=== PATIENT | male | born 1960 | race Caucasian/White ===

== ENCOUNTER 2017-02-28 18:24 | Emergency (ER) | payer OTHER ==
[~2017-02-28] VITALS: Ht 177.8 cm; Wt 88.4 kg
[2017-02-28 18:35] VITALS: O2SAT 98; Ht 177.8 cm; Wt 88.4 kg
[2017-02-28 18:58] VITALS: BP 126/74; PULSE 81; TEMP 36.8; O2SAT 96
--- NOTE | 2017-02-28 19:10 | EMERGENCY ROOM VISIT NOTE ---
History Report prepared by Marquisibgerardo: Nilton Mehta Under the Supervision of: Dr. Erich Geronimo M.D. First contact with patient: 18:27 Stated Complaint: FALL; ETOH History of Present Illness The patient is a 56 year old male who presents to the Emergency Room for evaluation s/p fall occurring just prior to arrival. He states that he was walking up some stairs at the [employer] game, when he fell backwards down the stairs. He is reported to have possibly fallen about 5-8 feet--he was found at the bottom of the stairs. The patient admits to drinking alcohol today. He remembers the fall. He denies any pain, or vomiting. The patient had an ECG with EMS which is reported to have been slightly abnormal. He blew a 0.148 by breathalyzer on scene. Per , the patient had a large amount of alcohol today, and did not have much to eat. She feels that he is nearly sober currently. Source of History: patient Onset: Just prior to arrival Quality: other (fall) Timing: other (episode) Associated Symptoms: No headache, No neck pain, No chest pain, No vomiting, No abdominal pain, No back pain Review of Systems See HPI for pertinent positives & negatives. A total of 10 systems reviewed and were otherwise negative. Past Medical & Surgical Medical Problems: (1) No Known Active Medical Problems Family History No pertinent family history stated. Social History Housing Status: lives with family Current/Historical Medications Unable to Obtain Active Prescriptions or Reported Meds Physical Exam Vital Signs Date Time Temp Pulse Resp B/P (MAP) Pulse Ox O2 Delivery O2 Flow Rate FiO2 02/28/17 18:58 36.8 81 20 126/74 96 Room Air 02/28/17 18:35 36.4 87 18 137/84 96 Room Air 02/28/17 18:35 98 Room Air 02/28/17 18:33 90 Physical Exam GENERAL: Patient is in no acute distress. HEENT: No acute trauma, normocephalic atraumatic, mucous membranes moist, no nasal congestion, no scleral icterus. Pupils equal and reactive to light. No obvious head trauma. NECK: No stridor, no adenopathy, no meningismus, trachea is midline. Non-tender posterior cervical spine. LUNGS: Clear to auscultation bilaterally, no wheeze, no rhonchi, breath sounds equal. HEART: Without murmurs gallops or rubs, regular rate and rhythm. ABDOMEN: Soft, nontender, bowel sounds positive, no hernias, no peritonitis. EXTREMITIES: No cyanosis or edema, full range of motion of all the joints without pain or difficulty, no signs for acute trauma. NEUROLOGIC: Mildly intoxicated with alcohol, no acute motor or sensory deficits , no focal weakness. SKIN: No rash, no jaundice, no diaphoresis. Medical Decision & Procedures ECG Indication: other (fall) Rate (beats per minute): 87 Rhythm: normal sinus Findings: no acute ischemic change, no ectopy, other (Diffuse non-specific ST change. Baseline artifact. ) Change: Pre-hospital ECG reveals a normal sinus rhythm with ST-depressions in V3. ED Course 1826: The patient was evaluated in room A12A. A complete history and physical exam was performed. 1854: Reevaluated the patient. Discussed results and discharge instructions: he verbalized understanding and agreement. The patient is ready for discharge. Medical Decision The patient is a 56 year old male who presents to the ED for evaluation s/p fall. Differential diagnoses considered include head/neck trauma, alcohol/drug abuse, dehydration, syncope, and dysrhythmia. The patient presents after falling down some stairs, the exact number of stairs and the distance he fell is not currently known. The patient does not have any scalp hematoma or laceration. He has no pain to any extremity, his back, chest or abdomen. He does admit to drinking alcohol today. As per his , the patient has been at baseline health and has been without complaints. She does feel he had too much alcohol to drink today without enough to eat. I did review the EKG that was done prehospital. There was some T-wave inversion and ST depression in V3, no reciprocal changes. The rhythm was sinus. EKG at our hospital demonstrates a normal sinus rhythm with artifact, no acute ischemic change. I talked to the patient about his heart. He has not had chest pain or dyspnea. He has no known cardiac disease. He is not on any type of blood thinner. The patient states that he has no complaints at present and would like to be discharged. The patient has been walking about the ER, he is not staggering, he has no pain. His is here. He will be discharged in the custody of his family. He was told to follow with his doctor's office for a recheck this week. His will wake him one time tonight to make sure he is okay. The patient can be returned if worsening. Impression Primary Impression: Alcohol use Additional Impression: Fall Scribe Attestation The scribe's documentation has been prepared under my direction and personally reviewed by me in its entirety. I confirm that the note above accurately reflects all work, treatment, procedures, and medical decision making performed by me. Departure Information Dispostion Home / Self-Care Prescriptions Unable to Obtain Active Prescriptions or Reported Meds Forms HOME CARE DOCUMENTATION FORM, IMPORTANT VISIT INFORMATION Patient Instructions My [facility] Additional Instructions see sadi allen for reheck next week tylenol for pain see nearest ER if worsening do not use anymore alcohol today rest stay well hydrated wake him 1 time this evening to be sure he is ok Problem Qualifiers Additional Impression: Fall Encounter type: initial encounter Qualified Codes: W19.XXXA - Unspecified fall, initial encounter
== END 2017-02-28 18:59 | disposition home or self-care (01) ==
LOC: EDBD 18:24 → C.EDA 18:27
DX: Z72.89 Other problems related to lifestyle (principal); W00.1XXA Fall from stairs and steps due to ice and snow, initial encounter; Y93.01 Activity, walking, marching and hiking; Y99.8 Other external cause status